=== PATIENT | female | born 1940 | race Caucasian/White ===

== ENCOUNTER 2020-01-17 22:00 | Inpatient (IN) ==
[2020-01-18] MEDS: *HR* Heparin 5,000 UNIT/ML VIAL SQ SCH ×3 (06:32→21:10)
[2020-01-18 07:17] LABS: Calcium 7.9 mg/dL (8.6-10.3); Potassium 4.2 mEq/L (3.5-5.1)
[2020-01-18 10:45] LABS: Basophils # 0.1 K/mcL (0.0-0.2); Basophils % 0.9 %; Eosinophils # 0.2 K/mcL (0.0-0.6); Eosinophils % 2.2 %; Hematocrit 39.7 % (35.3-44.9); Hemoglobin 12.2 g/dL (11.5-15.4); Immature Granulocytes % 1.4 % (0-4); Lymphocytes # 0.4 K/mcL (0.6-4.6); Mean Corpuscular HGB Conc 30.7 g/dL (31.6-35.5); Mean Corpuscular Hemoglobin 29.3 pg (28.0-33.3); Mean Corpuscular Volume 95.2 fL (83.0-100.0); Mean Platelet Volume 11.3 fL (9.4-12.4); Monocytes # 1.2 K/mcL (0.0-1.3); Monocytes % 10.9 %; Neutrophils # 8.7 K/mcL (1.6-8.9); Platelet Count 199 K/mcL (140-400); Red Blood Count 4.17 M/mcL (3.82-4.97); Red Cell Distribution Width 14.6 % (11.5-14.5); Segmented Neutrophils % 80.6 %; White Blood Count 10.8 K/mcL (4.3-11.1)
[2020-01-18] MEDS ORDERED: Ondansetron ODT 4 MG TAB.RAPDIS SL PRN (11:18)
[2020-01-18] MEDS ORDERED: Naloxone 0.4 MG/ML INJ IVP PRN (11:18)
[2020-01-18] MEDS ORDERED: 0.9 % Sodium Chloride 1,000 ML IVC ONE (11:21)
[2020-01-18] MEDS ORDERED: 0.9 % Sodium Chloride w KCl 20 MEQ/1,000 ML MLS IVC SCH (11:30)
[2020-01-18] MEDS ORDERED: *HR* Metoprolol 5 MG/5 ML VIAL IVP PRN (11:31)
[2020-01-18] MEDS: Levothyroxine Sodium 100 MCG VIAL IVP SCH (12:34)
[2020-01-18] MEDS ORDERED: Chloraseptic Spray 177 ML BOTTLE MM PRN (14:12)
[2020-01-18] MEDS: 0.9 % Sodium Chloride w KCl 20 MEQ/1,000 ML MLS IVC SCH (15:54)
[2020-01-19] MEDS: 0.9 % Sodium Chloride w KCl 20 MEQ/1,000 ML MLS IVC SCH (03:42)
[2020-01-19] MEDS ORDERED: Dextrose Gel 15 GM/37.5 ML TUBE PO PRN ×2 (04:34)
[2020-01-19] MEDS ORDERED: *HR* Dextrose 50 % in Water (Vial) 50 ML VIAL IVP PRN (04:34)
[2020-01-19] MEDS ORDERED: D5% in Water 1,000 ML IVC PRN (04:34)
[2020-01-19] MEDS ORDERED: Dextrose Gel 15 GM/37.5 ML TUBE PO ONE (04:37)
[2020-01-19] MEDS: *HR* Heparin 5,000 UNIT/ML VIAL SQ SCH ×3 (07:01→20:32)
[2020-01-19] MEDS ORDERED: *HR* FentaNYL (PF) 100 MCG/2 ML VIAL IVP ONE (11:11)
[2020-01-19] MEDS ORDERED: *HR* Promethazine 25 MG/ML VIAL IVP ONE (11:26)
[2020-01-19] MEDS ORDERED: Ondansetron 4 MG/2 ML VIAL IVP PRN ×2 (11:30→14:01)
[2020-01-19] MEDS: Levothyroxine Sodium 100 MCG VIAL IVP SCH (11:48)
[2020-01-19] MEDS: Furosemide 20 MG/2 ML VIAL IVP SCH (11:50)
[2020-01-19] MEDS: D5% in 0.45% NACL w KCl 20 MEQ/1,000 ML MLS IVC SCH ×2 (14:49→15:35)
[2020-01-19] MEDS: Milk and Molasses Enema 200 ML RC SCH ×2 (14:49→23:23)
[2020-01-20] MEDS: *HR* Heparin 5,000 UNIT/ML VIAL SQ SCH ×2 (05:35→13:33)
[2020-01-20] MEDS: Milk and Molasses Enema 200 ML RC SCH ×3 (05:35→17:00)
[2020-01-20] MEDS: D5% in 0.45% NACL w KCl 20 MEQ/1,000 ML MLS IVC SCH (06:07)
[2020-01-20] MEDS: Furosemide 20 MG/2 ML VIAL IVP SCH (08:50)
[2020-01-20] MEDS: Levothyroxine Sodium 100 MCG VIAL IVP SCH (08:51)
[2020-01-20 08:53] LABS: Basophils # 0.1 K/mcL (0.0-0.2); Basophils % 0.7 %; Eosinophils # 0.3 K/mcL (0.0-0.6); Eosinophils % 3.8 %; Hematocrit 37.5 % (35.3-44.9); Hemoglobin 11.5 g/dL (11.5-15.4); Immature Granulocytes % 1.3 % (0-4); Lymphocytes # 0.7 K/mcL (0.6-4.6); Lymphocytes % 9.3 %; Mean Corpuscular HGB Conc 30.7 g/dL (31.6-35.5); Mean Corpuscular Hemoglobin 30.2 pg (28.0-33.3); Mean Corpuscular Volume 98.4 fL (83.0-100.0); Mean Platelet Volume 11.3 fL (9.4-12.4); Monocytes % 14.7 %; Platelet Count 189 K/mcL (140-400); Red Blood Count 3.81 M/mcL (3.82-4.97); Red Cell Distribution Width 14.6 % (11.5-14.5); Segmented Neutrophils % 70.2 %; White Blood Count 7.1 K/mcL (4.3-11.1)
[2020-01-20] MEDS ORDERED: Acetaminophen IV 1,000 MG/100 ML INFUS..BTL IVPB ONE (08:59)
[2020-01-20 09:00] LABS: INR 1.2; Prothrombin Time 14.1 Seconds (9.4-12.1)
[2020-01-20 09:14] LABS: Albumin 3.3 g/dL (3.5-5.7); BUN/Creatinine Ratio 25 (6-26); Blood Urea Nitrogen 25 mg/dL (8-23); Calcium 8.5 mg/dL (8.6-10.3); Carbon Dioxide 31 mEq/L (23-29); Chloride 109 mEq/L (98-107); Glucose 123 mg/dL (70-105); Magnesium 2.2 mg/dL (1.6-2.6); Osmolality,Calculated 308 (280-300); Phosphorous 2.7 mg/dL (2.7-4.5); Sodium 146 mEq/L (136-145); eGFR For African Americans > 60 (> 60); eGFR For Non-African Americans 52 (> 60)
[2020-01-20] MEDS: *HR* Metoprolol 5 MG/5 ML VIAL IVP SCH ×3 (10:20→17:00)
[2020-01-20] MEDS ORDERED: Morphine Sulfate 2 MG/ML SYRINGE IVP PRN (17:02)
[2020-01-20] MEDS ORDERED: Ondansetron 4 MG/2 ML VIAL IVP PRN ×2 (17:02→22:40)
[2020-01-20] MEDS ORDERED: *HR* FentaNYL (PF) 100 MCG/2 ML VIAL ONE (18:56)
[2020-01-20] MEDS ORDERED: *HR* Rocuronium Bromide 50 MG/5 ML VIAL ONE (18:56)
[2020-01-20] MEDS ORDERED: Lidocaine -MPF 2% 2 ML VIAL ONE (18:56)
[2020-01-20] MEDS ORDERED: Dexamethasone 4 MG/ML VIAL ONE (18:56)
[2020-01-20] MEDS ORDERED: *HR* Propofol 200 MG/20 ML VIAL IVP ONE (18:56)
[2020-01-20] MEDS ORDERED: Ondansetron 4 MG/2 ML VIAL ONE (18:56)
[2020-01-20] MEDS ORDERED: *HR* Midazolam HCl 2 MG/2 ML VIAL ONE (18:56)
[2020-01-20] MEDS ORDERED: Famotidine 20 MG/2 ML VIAL ONE (19:51)
[2020-01-20] MEDS ORDERED: Acetaminophen IV 1,000 MG/100 ML INFUS..BTL ONE (19:51)
[2020-01-20] MEDS ORDERED: *HR* Atropine Sulfate 8 MG/20 ML VIAL IVP ONE (20:42)
[2020-01-20] MEDS ORDERED: Lacri-Lube 3.5 GM TUBE ONE (21:15)
[2020-01-20] MEDS ORDERED: *HR* HYDROMORPHONE 2 MG/ML VIAL ONE (21:26)
[2020-01-20] MEDS ORDERED: Dextrose Gel 15 GM/37.5 ML TUBE PO PRN ×2 (22:40)
[2020-01-20] MEDS ORDERED: *HR* Dextrose 50 % in Water (Vial) 50 ML VIAL IVP PRN (22:40)
[2020-01-20] MEDS ORDERED: D5% in 0.45% NACL w KCl 20 MEQ/1,000 ML MLS IVC SCH (22:40)
[2020-01-20] MEDS ORDERED: D5% in Water 1,000 ML IVC PRN (22:40)
[2020-01-20] MEDS ORDERED: Naloxone 0.4 MG/ML INJ IVP PRN (22:40)
[2020-01-20] MEDS ORDERED: Chloraseptic Spray 177 ML BOTTLE MM PRN (22:40)
[2020-01-21] MEDS: *HR* Metoprolol 5 MG/5 ML VIAL IVP SCH ×5 (00:35→23:13)
[2020-01-21] MEDS: *HR* Heparin 5,000 UNIT/ML VIAL SQ SCH ×4 (00:36→21:03)
[2020-01-21] MEDS: D5% in 0.45% NACL w KCl 20 MEQ/1,000 ML MLS IVC SCH ×3 (00:36→16:08)
[2020-01-21] MEDS: Pantoprazole 40 MG VIAL IVP SCH (08:27)
[2020-01-21] MEDS: Levothyroxine Sodium 100 MCG VIAL IVP SCH (08:28)
[2020-01-21] MEDS: Furosemide 20 MG/2 ML VIAL IVP SCH (08:29)
[2020-01-22] MEDS: D5% in 0.45% NACL w KCl 20 MEQ/1,000 ML MLS IVC SCH (02:19)
[2020-01-22] MEDS: *HR* Heparin 5,000 UNIT/ML VIAL SQ SCH ×3 (06:12→21:40)
[2020-01-22] MEDS: *HR* Metoprolol 5 MG/5 ML VIAL IVP SCH ×3 (06:13→18:21)
[2020-01-22] MEDS: Furosemide 20 MG/2 ML VIAL IVP SCH (09:15)
[2020-01-22] MEDS: Pantoprazole 40 MG VIAL IVP SCH (09:15)
[2020-01-22] MEDS: Levothyroxine Sodium 100 MCG VIAL IVP SCH (09:16)
[2020-01-22] MEDS ORDERED: *HR* OxyCODONE/APAP 5/325 TABLET PO PRN (11:29)
[2020-01-22] MEDS: Acetaminophen IV 1,000 MG/100 ML INFUS..BTL IVPB SCH ×2 (12:30→18:20)
[2020-01-22] MEDS: *HR* Amiodarone 200 MG TABLET PO SCH (15:07)
[2020-01-23] MEDS: Acetaminophen IV 1,000 MG/100 ML INFUS..BTL IVPB SCH ×4 (00:30→18:29)
[2020-01-23] MEDS: *HR* Metoprolol 5 MG/5 ML VIAL IVP SCH ×4 (00:30→18:35)
[2020-01-23] MEDS: *HR* Heparin 5,000 UNIT/ML VIAL SQ SCH ×2 (05:16→16:40)
[2020-01-23] MEDS: Furosemide 20 MG/2 ML VIAL IVP SCH (10:18)
[2020-01-23] MEDS: Pantoprazole 40 MG VIAL IVP SCH (10:18)
[2020-01-23] MEDS ORDERED: Furosemide 20 MG TABLET PO PRN (16:06)
[2020-01-23] MEDS: *HR* Amiodarone 200 MG TABLET PO SCH (16:40)
[2020-01-23] MEDS: *HR* Warfarin 2 MG TABLET PO SCH (18:31)
[2020-01-23 21:36] LABS: Campylobacter by PCR Not detected (Not detect)
[2020-01-23 21:39] LABS: Adenovirus F 40/41 PCR Not detected (Not detect); Astrovirus PCR Not detected (Not detect); C.difficile Toxin A/B Gene PCR DETECTED (Not detect); Cryptosporidium by PCR Not detected (Not detect); Cyclospora cayetanensis PCR Not detected (Not detect); E. coli O157 by PCR Not detected (Not detect); Entamoeba histolytica PCR Not detected (Not detect); Enteroaggregative E.coli(EAEC) Not detected (Not detect); Enteropathogenic E.coli(EPEC) Not detected (Not detect); Enterotoxigenic E.coli (ETEC) Not detected (Not detect); Giardia lamblia PCR Not detected (Not detect); Norovirus GI/GII PCR Not detected (Not detect); Plesiomonas shigelloides PCR Not detected (Not detect); Rotavirus A PCR Not detected (Not detect); Salmonella PCR Not detected (Not detect); Sapovirus PCR Not detected (Not detect); Shig/EnteroinvasiveE coli EIEC Not detected (Not detect); Shigalike tox-prod E coli STEC Not detected (Not detect); Vibrio PCR Not detected (Not detect); Vibrio cholerae PCR Not detected (Not detect); Yersinia enterocolitica PCR Not detected (Not detect)
[2020-01-23] MEDS: Vancomycin Oral Soln 125 MG/2.5 ML UDC PO SCH (22:12)
[2020-01-24] MEDS: *HR* Heparin 5,000 UNIT/ML VIAL SQ SCH ×4 (00:33→20:47)
[2020-01-24] MEDS: Acetaminophen IV 1,000 MG/100 ML INFUS..BTL IVPB SCH ×4 (00:52→16:48)
[2020-01-24] MEDS: *HR* Metoprolol 5 MG/5 ML VIAL IVP SCH ×2 (00:53→06:15)
[2020-01-24 02:58] LABS: Eosinophils # 0.2 K/mcL (0.0-0.6); Eosinophils % 1.4 %; Hematocrit 35.9 % (35.3-44.9); Hemoglobin 11.2 g/dL (11.5-15.4); Immature Granulocytes % 3.4 % (0-4); Lymphocytes # 0.9 K/mcL (0.6-4.6); Lymphocytes % 6.2 %; Mean Corpuscular HGB Conc 31.2 g/dL (31.6-35.5); Mean Corpuscular Hemoglobin 29.2 pg (28.0-33.3); Mean Corpuscular Volume 93.7 fL (83.0-100.0); Mean Platelet Volume 11.7 fL (9.4-12.4); Monocytes # 0.8 K/mcL (0.0-1.3); Monocytes % 5.7 %; Platelet Count 205 K/mcL (140-400); Red Blood Count 3.83 M/mcL (3.82-4.97); Red Cell Distribution Width 14.6 % (11.5-14.5); Segmented Neutrophils % 82.3 %
[2020-01-24 03:06] LABS: Basophils # 0.2 K/mcL (0.0-0.2); White Blood Count 14.6 K/mcL (4.3-11.1)
[2020-01-24 03:12] LABS: BUN/Creatinine Ratio 15 (6-26); Blood Urea Nitrogen 14 mg/dL (8-23); Calcium 7.9 mg/dL (8.6-10.3); Carbon Dioxide 27 mEq/L (23-29); Chloride 105 mEq/L (98-107); Glucose 90 mg/dL (70-105); Osmolality,Calculated 288 (280-300); Potassium 3.4 mEq/L (3.5-5.1); Sodium 139 mEq/L (136-145); eGFR For African Americans > 60 (> 60); eGFR For Non-African Americans 59 (> 60)
[2020-01-24] MEDS: Vancomycin Oral Soln 125 MG/2.5 ML UDC PO SCH ×4 (08:51→20:47)
[2020-01-24] MEDS: 0.9 % Sodium Chloride w KCl 20 MEQ/1,000 ML MLS IVC SCH (10:01)
[2020-01-24] MEDS ORDERED: *HR* Metoprolol 5 MG/5 ML VIAL IVP PRN (11:08)
[2020-01-24] MEDS: Fluconazole 100 MG TABLET PO SCH (11:17)
[2020-01-24] MEDS: *HR* Warfarin 2 MG TABLET PO SCH (16:48)
[2020-01-24] MEDS: *HR* Amiodarone 200 MG TABLET PO SCH (16:48)
[2020-01-25] MEDS: Acetaminophen IV 1,000 MG/100 ML INFUS..BTL IVPB SCH ×2 (01:16→05:51)
[2020-01-25 03:48] LABS: Basophils % 0.2 %; Eosinophils # 0.2 K/mcL (0.0-0.6); Eosinophils % 1.7 %; Hemoglobin 10.8 g/dL (11.5-15.4); Immature Granulocytes % 6.1 % (0-4); Lymphocytes # 1.2 K/mcL (0.6-4.6); Lymphocytes % 9.6 %; Mean Corpuscular HGB Conc 31.8 g/dL (31.6-35.5); Mean Corpuscular Hemoglobin 30.4 pg (28.0-33.3); Mean Corpuscular Volume 95.8 fL (83.0-100.0); Mean Platelet Volume 11.6 fL (9.4-12.4); Monocytes # 0.7 K/mcL (0.0-1.3); Monocytes % 5.7 %; Platelet Count 243 K/mcL (140-400); Red Blood Count 3.55 M/mcL (3.82-4.97); Red Cell Distribution Width 14.5 % (11.5-14.5); Segmented Neutrophils % 76.7 %; White Blood Count 12.6 K/mcL (4.3-11.1)
[2020-01-25 03:57] LABS: INR 1.9; Prothrombin Time 21.6 Seconds (9.4-12.1)
[2020-01-25 04:00] LABS: Neutrophils # 9.7 K/mcL (1.6-8.9)
[2020-01-25 04:06] LABS: BUN/Creatinine Ratio 14 (6-26); Blood Urea Nitrogen 12 mg/dL (8-23); Calcium 7.4 mg/dL (8.6-10.3); Carbon Dioxide 25 mEq/L (23-29); Chloride 108 mEq/L (98-107); Glucose 91 mg/dL (70-105); Magnesium 1.5 mg/dL (1.6-2.6); Osmolality,Calculated 291 (280-300); Phosphorous 2.6 mg/dL (2.7-4.5); Potassium 3.3 mEq/L (3.5-5.1); Sodium 141 mEq/L (136-145); eGFR For African Americans > 60 (> 60); eGFR For Non-African Americans > 60 (> 60)
[2020-01-25 04:26] LABS: Platelet Estimate Normal (Normal)
[2020-01-25] MEDS: *HR* Heparin 5,000 UNIT/ML VIAL SQ SCH (07:13)
[2020-01-25] MEDS: Furosemide 20 MG TABLET PO SCH (09:33)
[2020-01-25] MEDS: Vancomycin Oral Soln 125 MG/2.5 ML UDC PO SCH ×4 (09:33→20:55)
[2020-01-25] MEDS: Fluconazole 100 MG TABLET PO SCH (09:33)
[2020-01-25] MEDS: 0.9 % Sodium Chloride w KCl 20 MEQ/1,000 ML MLS IVC SCH (09:37)
[2020-01-25] MEDS ORDERED: Potassium Phosphate 44 MEQ in 0.9 % Sodium Chloride 250 ML IVPB ONE (10:37)
[2020-01-25] MEDS ORDERED: Acetaminophen 325 MG TABLET PO PRN (10:44)
[2020-01-25] MEDS: Nystatin Cream 15 GM TUBE TP SCH ×3 (12:32→23:36)
[2020-01-25] MEDS: *HR* Metoprolol 5 MG/5 ML VIAL IVP SCH ×2 (12:32→16:59)
[2020-01-25] MEDS: *HR* Warfarin 2 MG TABLET PO SCH (17:00)
[2020-01-25] MEDS: *HR* Amiodarone 200 MG TABLET PO SCH (17:00)
[2020-01-26] MEDS: *HR* Metoprolol 5 MG/5 ML VIAL IVP SCH ×3 (00:07→11:08)
[2020-01-26 02:26] LABS: Hematocrit 35.1 % (35.3-44.9); Hemoglobin 11.3 g/dL (11.5-15.4); Mean Corpuscular HGB Conc 32.2 g/dL (31.6-35.5); Mean Corpuscular Hemoglobin 30.4 pg (28.0-33.3); Mean Corpuscular Volume 94.4 fL (83.0-100.0); Platelet Count 268 K/mcL (140-400); Red Blood Count 3.72 M/mcL (3.82-4.97); Red Cell Distribution Width 14.7 % (11.5-14.5); White Blood Count 13.9 K/mcL (4.3-11.1)
[2020-01-26 02:31] LABS: INR 2.7; Prothrombin Time 30.5 Seconds (9.4-12.1)
[2020-01-26 02:47] LABS: BUN/Creatinine Ratio 11 (6-26); Blood Urea Nitrogen 10 mg/dL (8-23); Calcium 7.7 mg/dL (8.6-10.3); Carbon Dioxide 24 mEq/L (23-29); Chloride 108 mEq/L (98-107); Glucose 95 mg/dL (70-105); Magnesium 1.9 mg/dL (1.6-2.6); Osmolality,Calculated 291 (280-300); Phosphorous 3.9 mg/dL (2.7-4.5); Potassium 3.7 mEq/L (3.5-5.1); Sodium 141 mEq/L (136-145); eGFR For African Americans > 60 (> 60); eGFR For Non-African Americans 59 (> 60)
[2020-01-26 02:55] LABS: Eosinophils # 0.3 K/mcL (0.0-0.6); Lymphocytes # 1.7 K/mcL (0.6-4.6); Neutrophils # 11.7 K/mcL (1.6-8.9); Platelet Estimate Normal (Normal)
[2020-01-26] MEDS: Furosemide 20 MG TABLET PO SCH (08:33)
[2020-01-26] MEDS: Vancomycin Oral Soln 125 MG/2.5 ML UDC PO SCH ×4 (08:33→20:54)
[2020-01-26] MEDS: Nystatin Cream 15 GM TUBE TP SCH ×3 (08:37→20:54)
[2020-01-26] MEDS ORDERED: Fluconazole 100 MG TABLET PO SCH (09:00)
[2020-01-26] MEDS ORDERED: levoFLOXacin 750 MG/150 ML 750 MG/150 ML BAG IVPB SCH (11:00)
[2020-01-26] MEDS ORDERED: Perflutren Lipid Microsphere 1.3 ML in 0.9 % Sodium Chloride 8.7 ML IVP PRN (12:41)
[2020-01-26] MEDS: hydrALAZINE 10 MG TABLET PO SCH (16:40)
[2020-01-26] MEDS: *HR* Amiodarone 200 MG TABLET PO SCH (16:40)
[2020-01-26] MEDS ORDERED: Warfarin perPT PO PRN (18:00)
[2020-01-26] MEDS ORDERED: *HR* Warfarin 3 MG TABLET PO SCH (18:00)
[2020-01-27] MEDS: hydrALAZINE 10 MG TABLET PO SCH ×2 (00:39→05:14)
[2020-01-27] MEDS: Vancomycin Oral Soln 125 MG/2.5 ML UDC PO SCH (07:16)
[2020-01-27] MEDS: Furosemide 20 MG TABLET PO SCH (07:17)
[2020-01-27] MEDS: Nystatin Cream 15 GM TUBE TP SCH (07:24)
[2020-01-27 09:35] LABS: Hematocrit 40.6 % (35.3-44.9); Mean Corpuscular HGB Conc 32.3 g/dL (31.6-35.5); Mean Corpuscular Hemoglobin 30.5 pg (28.0-33.3); Mean Corpuscular Volume 94.4 fL (83.0-100.0); Mean Platelet Volume 10.9 fL (9.4-12.4); Platelet Count 285 K/mcL (140-400); Red Cell Distribution Width 15.3 % (11.5-14.5); White Blood Count 11.7 K/mcL (4.3-11.1)
[2020-01-27 09:39] LABS: Hemoglobin 13.1 g/dL (11.5-15.4)
[2020-01-27 09:40] LABS: INR 2.1; Prothrombin Time 23.7 Seconds (9.4-12.1)
[2020-01-27] MEDS ORDERED: Perflutren Lipid Microsphere 1.3 ML in 0.9 % Sodium Chloride 8.7 ML IVP PRN (09:52)
[2020-01-27 09:57] LABS: BUN/Creatinine Ratio 8 (6-26); Blood Urea Nitrogen 8 mg/dL (8-23); Calcium 8.1 mg/dL (8.6-10.3); Carbon Dioxide 26 mEq/L (23-29); Chloride 107 mEq/L (98-107); Glucose 91 mg/dL (70-105); Osmolality,Calculated 292 (280-300); Phosphorous 3.2 mg/dL (2.7-4.5); Potassium 3.6 mEq/L (3.5-5.1); Sodium 142 mEq/L (136-145); eGFR For African Americans > 60 (> 60); eGFR For Non-African Americans 52 (> 60)
[2020-01-27 10:25] LABS: Basophils # 0.1 K/mcL (0.0-0.2); Lymphocytes # 1.4 K/mcL (0.6-4.6); Monocytes # 0.5 K/mcL (0.0-1.3); Neutrophils # 9.6 K/mcL (1.6-8.9); Platelet Estimate Normal (Normal); Reactive Lymphocytes Present (Not Present); Toxic Granulation Present (Not Present)
[2020-01-27 10:37] VITALS: BP 100/67
[2020-01-27] MEDS ORDERED: *HR* Warfarin 2 MG TABLET PO ONE (18:00)
== END 2020-01-27 11:15 | disposition left against medical advice (07) | DRG 356 ==
LOC: 3ANU
PROVIDERS: ADMIT Surgery; ATTEND Surgery